=== PATIENT | female | born 1985 | race Caucasian/White ===

== ENCOUNTER 2018-05-17 07:35 | Inpatient (IN) | payer OTHER ==
[~2018-05-17] VITALS: Ht 172 cm; Wt 94.3 kg
[2018-05-20] MEDS ORDERED: RINGERS SOLUTION,LACTATED 1,000 ML IV PRN (13:19)
[2018-05-20] MEDS ORDERED: OXYTOCIN 30 UNITS/LACT RINGERS 500 ML IV ONE (13:19)
[2018-05-20] MEDS ORDERED: PREN1TAB80 PO (13:22)
[2018-05-20 13:26] VITALS: BP 120/62
[2018-05-20] MEDS ORDERED: FentaNYL CITRATE-PF 100 MCG/2 ML VIAL IVP PRN (13:30)
[2018-05-20] MEDS ORDERED: LIDOCAINE/PF 1% 30 ML VIAL INJ PRN (13:30)
[2018-05-20] MEDS ORDERED: CITRIC ACID/SODIUM CITRATE 30 ML SOLUTION UDCUP PO PRN (13:30)
[2018-05-20] MEDS ORDERED: METOCLOPRAMIDE HCL 5 MG/ML 2 ML VIAL IVP PRN (13:30)
[2018-05-20] MEDS: RINGERS SOLUTION,LACTATED 1,000 ML IV SCH ×2 (13:52→19:59)
[2018-05-20] MEDS ORDERED: OXYTOCIN 30 UNITS/LACT RINGERS 500 ML IV PRN (14:00)
[2018-05-20] MEDS ORDERED: AMPICILLIN SODIUM 2 GM/NS 100 ML IV ONE (14:00)
[2018-05-20 14:11] LABS: BASOPHILS % (AUTO) 0.1 % (0.0-2.0); EOSINOPHILS % (AUTO) 1.3 % (1.0-6.0); HEMATOCRIT 34.1 % (36-46); HEMOGLOBIN 11.4 g/dL (12.0-16.0); LYMPHOCYTES # (AUTO) 1.5 K/uL (1.0-4.8); LYMPHOCYTES % (AUTO) 15.9 % (22.0-44.0); MEAN CORPUSCULAR HGB CONC 33.5 G/dL (31.0-37.0); MEAN CORPUSCULAR VOLUME 84 fL (80-100); MONOCYTES # (AUTO) 0.9 K/uL (0.1-1.0); NEUTROPHILS % (AUTO) 73.7 % (40.0-70.0); PLATELET COUNT (AUTO) 221 K/uL (150-450); RED BLOOD CELL COUNT(AUTO) 4.09 MIL/uL (4.00-5.20); RED CELL DISTRIBUTION WIDTH 13.6 % (11.5-14.5)
[2018-05-20] MEDS: AMPICILLIN SODIUM 1 GM/NS 50 ML IV SCH ×2 (18:09→22:04)
[2018-05-20] MEDS ORDERED: OXYGEN THERAPY IH SCH (20:00)
[2018-05-21] MEDS: AMPICILLIN SODIUM 1 GM/NS 50 ML IV SCH (02:15)
[2018-05-21] MEDS ORDERED: ROPIVACAINE HCL/PF 0.2% 100 ML ED PRN (03:01)
[2018-05-21] MEDS ORDERED: LIDOCAINE/PF 2% 5 ML VIAL ONE (03:13)
[2018-05-21] MEDS ORDERED: BUPIVACAINE HCL/PF 0.5% 10 ML VIAL ONE (03:13)
[2018-05-21] MEDS ORDERED: NALBUPHINE HCL 10 MG/ML VIAL IVP PRN (03:15)
[2018-05-21] MEDS ORDERED: DiphenhydrAMINE HCL 50 MG/ML VIAL IVP PRN (03:15)
[2018-05-21] MEDS ORDERED: ONDANSETRON HCL 4 MG/2 ML VIAL IVP PRN (03:15)
[2018-05-21] MEDS ORDERED: RINGERS SOLUTION,LACTATED 1,000 ML IV ONE (04:29)
[2018-05-21] MEDS ORDERED: MEASLES/MUMPS/RUBELLA VACCINE, LIVE 0.5 ML/VIAL SQ ONE (04:30)
[2018-05-21] MEDS ORDERED: OxyCODONE HCL/ACETAMINOPHEN 5-325 MG TABLET PO PRN ×2 (04:30)
[2018-05-21] MEDS ORDERED: LANOLIN 7 GM OINTMENT TP PRN (04:30)
[2018-05-21] MEDS: IBUPROFEN 600 MG TABLET PO PRN ×3 (06:12→20:15)
[2018-05-21] MEDS: BENZOCAINE 20%/MENTHOL 56 GM SPRAY CANISTER TP PRN ×2 (06:42→20:18)
[2018-05-21] MEDS: GLYCERIN/WITCH HAZEL LEAF 40 PADS JAR TP PRN (06:42)
[2018-05-21] MEDS: MAGNESIUM HYDROXIDE SUSPENSION 30 ML UDCUP PO SCH ×2 (08:34→21:00)
[2018-05-22] MEDS: GLYCERIN/WITCH HAZEL LEAF 40 PADS JAR TP PRN (07:40)
[2018-05-22] MEDS: IBUPROFEN 600 MG TABLET PO PRN (07:40)
== END 2018-05-22 10:00 | disposition home or self-care (01) | DRG 807 ==
LOC: OBSVTOIN 05-20 12:25 → 4S 05-20 12:25
PROVIDERS: ADMIT Obstetrics & Gynecology; ATTEND Obstetrics & Gynecology
PROC: 10E0XZZ Delivery of Products of Conception, External Approach (ICD-10-PCS; principal; 2018-05-21)
PROC: 0W8NXZZ Division of Female Perineum, External Approach (ICD-10-PCS; 2018-05-21)
PROC: 3E0R3BZ Introduction of Anesthetic Agent into Spinal Canal, Percutaneous Approach (ICD-10-PCS; 2018-05-21)
PROC: 00HU33Z Insertion of Infusion Device into Spinal Canal, Percutaneous Approach (ICD-10-PCS; 2018-05-21)
DX: O24.429 Gestational diabetes mellitus in childbirth, unspecified control (principal); Z37.0 Single live birth; O99.824 Streptococcus B carrier state complicating childbirth; Z3A.41 41 weeks gestation of pregnancy
CPT/HCPCS: J0290; J2590; J3490; J7120